=== PATIENT | male | born 1985 | race Caucasian/White ===

== ENCOUNTER 2022-04-30 18:43 | Emergency (ER) | payer SELFPAY ==
[2022-04-30] MEDS ORDERED: Ibuprofen 800 MG TAB ONE (19:14)
== END 2022-04-30 20:03 | disposition home or self-care (01) ==
LOC: NAV ERS 18:43
DX: J10.1 Influenza due to other identified influenza virus with other respiratory manifestations (principal); F17.210 Nicotine dependence, cigarettes, uncomplicated
CPT/HCPCS: 87804; 99283

== ENCOUNTER 2022-08-25 18:59 | Emergency (ER) | payer BC, SELFPAY | END 2022-08-25 20:02 | disposition home or self-care (01) | LOC: NAV ERS 18:59 | DX: J01.80 Other acute sinusitis (principal); F17.210 Nicotine dependence, cigarettes, uncomplicated | CPT/HCPCS: 99283 ==

== ENCOUNTER 2023-02-10 12:53 | Emergency (ER) | payer SELFPAY | END 2023-02-10 13:30 | disposition home or self-care (01) | LOC: NAV ERS 12:53 | DX: M76.31 Iliotibial band syndrome, right leg (principal); F17.210 Nicotine dependence, cigarettes, uncomplicated | CPT/HCPCS: 99283 ==

== ENCOUNTER 2023-03-12 13:00 | Emergency (ER) | payer SELFPAY ==
[2023-03-12] MEDS ORDERED: Ketorolac Tromethamine 30 MG/ML VIAL ONE (13:46)
== END 2023-03-12 14:08 | disposition home or self-care (01) ==
LOC: NAV ERS 13:00
DX: J01.90 Acute sinusitis, unspecified (principal); R51.9 Headache, unspecified; F17.210 Nicotine dependence, cigarettes, uncomplicated; Z79.899 Other long term (current) drug therapy
CPT/HCPCS: 96372; 99283; J1885

== ENCOUNTER 2023-04-22 14:12 | Emergency (ER) | payer SELFPAY | END 2023-04-22 15:40 | disposition home or self-care (01) | LOC: NAV ERS 14:12 | DX: J32.9 Chronic sinusitis, unspecified (principal); F17.210 Nicotine dependence, cigarettes, uncomplicated; Z79.899 Other long term (current) drug therapy | CPT/HCPCS: 99283 ==

== ENCOUNTER 2023-06-04 16:55 | Emergency (ER) | payer BC, SELFPAY ==
[2023-06-04] MEDS ORDERED: methylPREDNISolone Acetate 40 mg/ml Vial ONE (18:03)
[2023-06-04] MEDS ORDERED: AMOXicillin 250 MG CAP ONE (18:03)
== END 2023-06-04 18:37 | disposition home or self-care (01) ==
LOC: NAV ERS 16:55
DX: J01.90 Acute sinusitis, unspecified (principal); B96.89 Other specified bacterial agents as the cause of diseases classified elsewhere; J42 Unspecified chronic bronchitis; J20.9 Acute bronchitis, unspecified; F17.210 Nicotine dependence, cigarettes, uncomplicated; Z20.822 Contact with and (suspected) exposure to COVID-19
CPT/HCPCS: 87635; 87804; 96372; 99283; J1030

== ENCOUNTER 2023-06-27 15:44 | Emergency (ER) | payer BC | END 2023-06-27 16:20 | disposition home or self-care (01) | LOC: NAV ERS 15:44 | DX: K52.9 Noninfective gastroenteritis and colitis, unspecified (principal); F17.210 Nicotine dependence, cigarettes, uncomplicated | CPT/HCPCS: 99283 ==

== ENCOUNTER 2024-01-19 13:25 | Emergency (ER) | payer BC, SELFPAY ==
[2024-01-19] MEDS ORDERED: Ketorolac Tromethamine 30 MG (1 mL) VIAL ONE (13:48)
[2024-01-19] MEDS ORDERED: Sodium Chloride 0.9% 1,000 ML ONE (13:48)
[2024-01-19 14:05] LABS: #Basophils 0.1 thou/uL (0.0-0.2); #Eosinphils 0.2 thou/uL (0.0-0.7); #Lymphocytes 2.9 thou/uL (1.20-3.40); #Neutrophils 4.2 thou/uL (1.40-6.50); %Basophils 0.9 % (0.0-1.0); %Eosinophils 2.4 % (0.0-10.0); %Lymphocytes 34.8 % (21.0-51.0); %Monocytes 12.4 % (0.0-10.0); %Neutrophils 49.7 % (42.0-75.0); Hematocrit 43.5 % (42.0-52.0); Hemoglobin 14.3 g/dL (14.0-18.0); Mean Corpuscular HGB CONC 32.9 g/dL (32.0-36.0); Mean Corpuscular Hemoglobin 28.1 pg (27.0-31.0); Mean Corpuscular Volume 85.5 fl (78.0-98.0); Mean Platelet Volume 7.8 fL (7.4-10.4); Platelet Count 261 10x3/uL (130-400); RBC Distribution Width 11.7 % (11.5-14.5); Red Blood Cell (RBC) Count 5.09 mill/uL (4.70-6.10); White Blood Cell (WBC) Count 8.4 10x3/uL (4.8-10.8)
[2024-01-19 14:10] LABS: ALT (SGPT) 22 U/L (8-55); AST (SGOT) 24 U/L (5-34); Albumin 4.4 g/dL (3.5-5.0); Alkaline Phosphatase 83 U/L (40-110); Anion Gap 17 mmol/L (10-20); BUN (Urea Nitrogen) 16 mg/dL (8.9-20.6); Bilirubin, Total 0.6 mg/dL (0.2-1.2); Calc. Creatinine Clearance 0 mL/min (70-130); Carbon Dioxide 22 mmol/L (22-29); Chloride 101 mmol/L (98-107); Estimated GFR 101; Globulin 3.2 g/dL (2.4-3.5); Glucose 110 mg/dL (70-105); Potassium 3.7 mmol/L (3.5-5.1); Protein, Total 7.6 g/dL (6.0-8.3); Sodium 136 mmol/L (136-145)
[2024-01-19 14:56] LABS: Bilirubin Negative (Negative); Blood, Urine Negative (Negative); CAUTI Indications for Culture Dysuria,urgency,freq; Clarity Clear (Clear); Glucose, Urine (Dipstick) Negative (Negative); Ketone, Urine Negative (Negative); Leukocyte Negative (Negative); Mucous/LPF 1+ LPF (<2+); Nitrite Negative (Negative); Protein, Urine (Dipstick) 30 mg/dL (Neg-Trace); Squamous Epithelial 0-3 HPF (0-3); Urobilinogen 0.2 mg/dL (Less than 2); WBC/HPF 0-3 HPF (0-3); pH, Urine 6.5 (5.0-9.0)
[2024-01-19 14:57] LABS: Urine Culture Reflex No No
== END 2024-01-19 15:20 | disposition home or self-care (01) ==
LOC: NAV ERS 13:25
DX: E86.0 Dehydration (principal); F17.210 Nicotine dependence, cigarettes, uncomplicated
CPT/HCPCS: 74176; 80053; 81001; 85025; 96361; 96374; J1885; J2919

== ENCOUNTER 2024-03-29 10:14 | Emergency (ER) | payer SELFPAY | END 2024-03-29 11:35 | disposition home or self-care (01) | LOC: NAV ERS 10:14 | DX: B34.9 Viral infection, unspecified (principal); F17.210 Nicotine dependence, cigarettes, uncomplicated | CPT/HCPCS: 87428; 99283 ==

== ENCOUNTER 2025-03-29 10:07 | Emergency (ER) | payer BC | END 2025-03-29 11:15 | disposition home or self-care (01) | LOC: NAV ERS 10:07 | DX: J02.9 Acute pharyngitis, unspecified (principal); F17.210 Nicotine dependence, cigarettes, uncomplicated | CPT/HCPCS: 87081; 87428; 87430; 99283 ==